=== PATIENT | male | born 1985 | race Caucasian/White ===

== ENCOUNTER 2024-10-12 22:19 | Emergency (ER) | payer OTHER ==
[~2024-10-12] VITALS: Ht 175.3 cm; Wt 85.0 kg
[2024-10-12 22:22] VITALS: TEMP 36.8; O2SAT 98
[2024-10-12 22:42] VITALS: BP 100/86; PULSE 144; RESP 16; O2SAT 95
[2024-10-12 22:49] LABS: BASOPHILS % 0.6 % (0.0-2.0); EOSINOPHILS % 0.3 % (0.0-5.0); HEMATOCRIT. 50.1 % (42.0-52.0); HEMOGLOBIN. 17.3 g/dL (14.0-18.0); LYMPHOCYTES % 23.0 % (20.0-50.0); MEAN PLATELET VOLUME 8.1 fl (7.4-10.4); MONOCYTES % 12.4 % (2.0-8.0); NEUTROPHILS % 63.7 % (40.0-76.0); PLATELET 236 x1000/uL (130-400); RED BLOOD CELL COUNT 5.51 mill/uL (4.7-6.1); RED CELL DISTRIBUTION WIDTH 13.8 % (11.6-14.6)
[2024-10-12] MEDS: SODIUM CHLORIDE 0.9% 1,000 ML IV ONE (22:56)
[2024-10-12 23:01] LABS: INR 1.0
[2024-10-12 23:19] LABS: CREATININE 1.6 mg/dL (0.6-1.3)
[2024-10-12 23:20] LABS: ETHANOL BLOOD 12 mg/dL (<10); TROPONIN I HIGH SENSITIVITY < 4 ng/L (3.0-53); UREA NITROGEN BLOOD 18 mg/dL (9-23)
== END 2024-10-12 23:24 | disposition left against medical advice (07) ==
LOC: ER 22:19
DX: R00.2 Palpitations (principal); F19.90 Other psychoactive substance use, unspecified, uncomplicated; F12.90 Cannabis use, unspecified, uncomplicated; F15.90 Other stimulant use, unspecified, uncomplicated; Z53.29 Procedure and treatment not carried out because of patient's decision for other reasons
CPT/HCPCS: 80048; 80320; 83880; 85025; 85379; 85610; 85730; 84484; 36415; 93005; 96360; 99284; J7030; Z7610; J8597; G0480